=== PATIENT | female | born 1940 | race Caucasian/White ===

== ENCOUNTER 2019-07-19 09:22 | Inpatient (IN) | payer MEDICARE ==
[2019-07-18 13:15] LABS: BASOPHILS # (AUTO) 0.1 X10'3 (0-0.2); BASOPHILS % (AUTO) 1.3 % (0-1); EOSINOPHILS # (AUTO) 0.2 X10'3 (0-0.9); EOSINOPHILS % (AUTO) 3.1 % (0-6); HEMATOCRIT 37.7 % (35.0-45.0); HEMOGLOBIN 12.5 g/dl (12.0-16.0); LYMPHOCYTES # (AUTO) 0.9 X10'3 (1.1-4.8); LYMPHOCYTES % (AUTO) 15.9 % (21-51); MEAN CORPUSCULAR HEMOGLOBIN 29.3 PG (27.0-31.0); MEAN CORPUSCULAR HGB CONC 33.3 g/dL (33.0-36.5); MEAN PLATELET VOLUME 9.1 FL (7.4-10.4); MONOCYTES # (AUTO) 0.4 X10'3 (0-0.9); MONOCYTES % (AUTO) 7.5 % (2-12); NEUTROPHILS # (AUTO) 4.1 X10'3 (1.8-7.7); NEUTROPHILS % (AUTO) 72.2 % (42-75); PLATELET COUNT 229 X10'3 (140-440); RED BLOOD COUNT 4.28 X10'6 (4.20-5.60); RED CELL DISTRIBUTION WIDTH 14.7 % (11.5-14.5); WHITE BLOOD COUNT 5.7 X10'3 (4.5-11.0)
[2019-07-18 13:27] LABS: ALBUMIN 3.5 G/DL (3.4-5.0); ANION GAP 11 (8-16); BLOOD UREA NITROGEN 18 MG/DL (7-18); BUN/CREATININE RATIO 15.5 (6.6-38.0); CALCIUM 9.5 MG/DL (8.5-10.1); CHLORIDE 108 MMOL/L (99-107); CREATININE 1.16 MG/DL (0.40-0.90); GLUCOSE 188 MG/DL (70-104); POTASSIUM 4.1 MMOL/L (3.5-5.1); SODIUM 141 MMOL/L (135-145); TOTAL CARBON DIOXIDE 21.8 MMOL/L (24-32); eGFR 45 ML/MIN
[2019-07-18 13:34] LABS: PARTIAL THROMBOPLASTIN TIME 22 SECONDS (22-32)
[~2019-07-19] VITALS: Ht 170.2 cm; Wt 107.2 kg
[2019-07-19] VITALS (13 sets, daily range): BP systolic 106–146; BP diastolic 55–64
[~2019-07-19 09:22] MED LIST: AMLO10TA13 PO; AMOX-580 PO; ASPI81TA30 PO; CLOP75TA35 PO; KRIL500C PO; LISI40TA4 PO; METO-395 PO; MULT-1085 PO; NITR0.4T51 SL; OCUVITE PO; PRAV20TA4 PO; SERT100T10 PO; UBID200C32
[2019-07-19] MEDS ORDERED: LORazepam 0.5 MG tablet PO PRN (10:20)
[2019-07-19] MEDS ORDERED: diphenhydrAMINE 25mg capsule PO PRN (10:20)
[2019-07-19] MEDS ORDERED: CALC-159 PO (11:15)
[2019-07-19] MEDS ORDERED: UBID100C16 PO (11:15)
[2019-07-19] MEDS ORDERED: ATEN50TA PO (11:15)
[2019-07-19] MEDS ORDERED: NITR0.4T51 SL (11:15)
[2019-07-19] MEDS ORDERED: CLOP75TA35 PO (11:15)
[2019-07-19] MEDS ORDERED: AMLO10TA PO (11:15)
[2019-07-19] MEDS ORDERED: LISI-645 PO (11:15)
[2019-07-19] MEDS ORDERED: HYDR-4069 PO (11:15)
[2019-07-19] MEDS ORDERED: FLU VACC QS2019-20 36MOS UP/PF 60 MCG/0.5 ML SYRINGE IMVAC ONE (11:40)
[2019-07-19] MEDS: normal saline 1,000 ML IV SCH ×2 (11:46→22:07)
[2019-07-19] MEDS ORDERED: LIDOcaine 1% 30ml preserv. free vial ONE (15:31)
[2019-07-19] MEDS ORDERED: heparin 1,000unit/ml 10ml vial 10 ML ONE (15:31)
[2019-07-19] MEDS ORDERED: iohexol 350 MG/ML 50ML vial IV ONE (15:31)
[2019-07-19] MEDS ORDERED: iohexol 350MG/ML 100ml bottle IV ONE ×2 (15:31→16:07)
[2019-07-19] MEDS ORDERED: midazolam 2 mg/2 ml injection ONE ×2 (15:31→16:41)
[2019-07-19] MEDS ORDERED: fentaNYL/PF 50MCG/1 ML 2ML syringe ONE (15:31)
[2019-07-19] MEDS ORDERED: nitroGLYCERIN-Tridil 50MG/D5W 250 ML IV ONE (15:36)
[2019-07-19] MEDS ORDERED: heparin 25,000 UNIT/250ml bag 250 ML IV ONE (16:24)
[2019-07-19] MEDS ORDERED: heparin 1,000 UNITS/NS 500ml 500 ML ONE (16:24)
[2019-07-19] MEDS ORDERED: clopidogrel 300mg tablet ONE (16:49)
[2019-07-19 17:16] LABS: ISTAT Hct MIX 37 %PCV (35-48); ISTAT O2 SATURATION MIX VENOUS 68 % (60-80); ISTAT SOURCE MIX
[2019-07-19 17:16] LABS: ISTAT HGB ART 12.2 g/dl (12.0-16.0); ISTAT Hct ART 36 %PCV (35-48); ISTAT O2 SATURATION ARTERIAL 98 % (95-98); ISTAT SOURCE ART
[2019-07-19] MEDS ORDERED: sodium bicarbonate (8.4%) inj. 100 ML in dextrose 5%-water 1,000 ML IV ONE (17:30)
[2019-07-19] MEDS ORDERED: nitroGLYCERIN 0.4mg SUBLingual tab SL PRN (18:00)
[2019-07-19] MEDS ORDERED: heparin 25,000 UNIT/250ml bag 250 ML IV SCH (18:03)
--- NOTE | 2019-07-19 19:50 | NUR ---
received report from wayne sparrow no questions or concerns after assuming care
[2019-07-19] MEDS: ACETYLCYSTEINE 200 MG/1 ML 4 ML ORAL SOLUTION PO SCH (20:00)
[2019-07-19] MEDS: aspirin 81mg tablet.DR PO SCH (20:00)
--- NOTE | 2019-07-19 20:51 | NUR ---
patients act 153 at 2030 hrs, patient requested bed goodman prior to pulling cath sheath, distal pulses intact rr even unlabored no observable s/s of acute stress at this time
--- NOTE | 2019-07-19 21:23 | NUR ---
dc'd sheaths holding brooke pressure
--- NOTE | 2019-07-19 21:45 | NUR ---
femstop applied no s/s of bleeding will continue to observe
--- NOTE | 2019-07-19 22:15 | NUR ---
patient in bed eyes closed rr even unlabored no s/s of acute stress or bleeding at this time
--- NOTE | 2019-07-19 23:08 | NUR ---
put a call in to dr[employer] [employer] requesting order for sleep aid, patient states taking "ambien." at night for insomnia, patient in bed rr even un labored no s/s of acute stress at this time
[2019-07-19] MEDS ORDERED: HYDROcodone/acetaminophen 5mg/325mg tablet PO PRN (23:15)
[2019-07-19] MEDS ORDERED: zolpidem 5mg tablet PO PRN (23:15)
[2019-07-19] MEDS ORDERED: HYDROcodone/acetaminophen 10/325mg tab PO PRN (23:15)
[2019-07-20] VITALS (9 sets, daily range): BP systolic 117–141; BP diastolic 53–114
--- NOTE | 2019-07-20 01:52 | NUR ---
PATIENT IN BED COVERS ON EYES CLOSED RR EVEN UN LABORED NO OBSERVABLE S/S OF ACUTE STRESS AT THIS TIME
--- NOTE | 2019-07-20 04:38 | NUR ---
PATIENT IN BED EYES CLOSED FINISHED USING BED LEYVA RR EVEN UN LABORED NO OBSERVABLE S/S OF ACUTE STRESS AT THIS TIME
[2019-07-20 04:56] LABS: BASOPHILS # (AUTO) 0.1 X10'3 (0-0.2); EOSINOPHILS # (AUTO) 0.2 X10'3 (0-0.9); EOSINOPHILS % (AUTO) 2.4 % (0-6); HEMATOCRIT 36.3 % (35.0-45.0); HEMOGLOBIN 12.2 g/dl (12.0-16.0); LYMPHOCYTES # (AUTO) 1.2 X10'3 (1.1-4.8); LYMPHOCYTES % (AUTO) 18.6 % (21-51); MEAN CORPUSCULAR HEMOGLOBIN 29.1 PG (27.0-31.0); MEAN CORPUSCULAR HGB CONC 33.6 g/dL (33.0-36.5); MEAN CORPUSCULAR VOLUME 86.6 FL (78-98); MEAN PLATELET VOLUME 8.8 FL (7.4-10.4); MONOCYTES # (AUTO) 0.7 X10'3 (0-0.9); MONOCYTES % (AUTO) 10.2 % (2-12); NEUTROPHILS # (AUTO) 4.5 X10'3 (1.8-7.7); NEUTROPHILS % (AUTO) 67.8 % (42-75); PLATELET COUNT 220 X10'3 (140-440); RED BLOOD COUNT 4.19 X10'6 (4.20-5.60); RED CELL DISTRIBUTION WIDTH 14.6 % (11.5-14.5); WHITE BLOOD COUNT 6.6 X10'3 (4.5-11.0)
[2019-07-20 05:09] LABS: ALBUMIN 3.4 G/DL (3.4-5.0); ANION GAP 10 (8-16); BLOOD UREA NITROGEN 17 MG/DL (7-18); BUN/CREATININE RATIO 16.2 (6.6-38.0); CALCIUM 9.4 MG/DL (8.5-10.1); CHLORIDE 109 MMOL/L (99-107); CHOL/HDL RATIO 2.7 (0.00-4.99); CHOLESTEROL 168 MG/DL (0-200); CREATININE 1.05 MG/DL (0.40-0.90); GLUCOSE 100 MG/DL (70-104); HDL CHOLESTEROL 62 MG/DL (35-60); LDL CHOLESTEROL 82 MG/DL (50-100); POTASSIUM 3.8 MMOL/L (3.5-5.1); SODIUM 143 MMOL/L (135-145); TOTAL CARBON DIOXIDE 23.7 MMOL/L (24-32); TRIGLYCERIDES 168 MG/DL (20-135); eGFR 50 ML/MIN
--- NOTE | 2019-07-20 06:18 | NUR ---
SBAR TO DAY SHIFT RN NO QUESTIONS OR CONCERNS AFTER ASSUMING CARE
[2019-07-20] MEDS: normal saline 1,000 ML IV SCH (07:21)
--- NOTE | 2019-07-20 07:23 | NUR ---
Report given to Francoise Hanson RN.
[2019-07-20] MEDS ORDERED: atorvastatin 10mg tablet PO SCH (08:00)
[2019-07-20] MEDS ORDERED: lisinopril 20mg tablet PO SCH (08:00)
[2019-07-20] MEDS ORDERED: hydrALAZINE 25 MG tablet PO SCH (08:00)
[2019-07-20] MEDS ORDERED: non-formulary drug (Ubidecarenone (Coq-10) 100 MG) PO SCH (08:00)
[2019-07-20] MEDS ORDERED: multivitamins, therapeutics tablet PO SCH (08:00)
[2019-07-20] MEDS ORDERED: clopidogrel 75mg tablet PO SCH ×2 (08:00)
[2019-07-20] MEDS ORDERED: calcium carbonate/vitamin D3 tablet PO SCH (08:00)
[2019-07-20] MEDS ORDERED: sertraline 50mg tablet PO SCH (08:00)
[2019-07-20] MEDS ORDERED: atenolol 50mg tablet PO SCH (08:00)
[2019-07-20] MEDS: ACETYLCYSTEINE 200 MG/1 ML 4 ML ORAL SOLUTION PO SCH (08:00)
[2019-07-20] MEDS ORDERED: amLODIPine 5mg tablet PO SCH (08:00)
[2019-07-20] MEDS: aspirin 81mg tablet.DR PO SCH (08:55)
--- NOTE | 2019-07-20 09:45 | NUR ---
patient discharged and discharge packet provided, patient is sitting up on side of bed waiting for family member to come pick her up.
--- NOTE | 2019-07-20 10:00 | NUR ---
patient taken down to the car via wheelchair and family member is driving her home
== END 2019-07-20 09:30 | disposition home or self-care (01) | DRG 247 ==
LOC: SSTAY O 09:22 → CICU 2S 19:45
PROVIDERS: ADMIT Internal Medicine Cardiovascular Disease; ATTEND Internal Medicine Cardiovascular Disease
PROC: 4A023N8 Measurement of Cardiac Sampling and Pressure, Bilateral, Percutaneous Approach (ICD-10-PCS; principal; 2019-07-19)
PROC: 027034Z Dilation of Coronary Artery, One Artery with Drug-eluting Intraluminal Device, Percutaneous Approach (ICD-10-PCS; 2019-07-19)
PROC: B2111ZZ Fluoroscopy of Multiple Coronary Arteries using Low Osmolar Contrast (ICD-10-PCS; 2019-07-19)
PROC: B2151ZZ Fluoroscopy of Left Heart using Low Osmolar Contrast (ICD-10-PCS; 2019-07-19)
PROC: B2131ZZ Fluoroscopy of Multiple Coronary Artery Bypass Grafts using Low Osmolar Contrast (ICD-10-PCS; 2019-07-19)
DX: I25.10 Atherosclerotic heart disease of native coronary artery without angina pectoris (principal); I50.32 Chronic diastolic (congestive) heart failure; E78.5 Hyperlipidemia, unspecified; I49.5 Sick sinus syndrome; G47.00 Insomnia, unspecified; F32.9 Major depressive disorder, single episode, unspecified; E03.9 Hypothyroidism, unspecified; M19.90 Unspecified osteoarthritis, unspecified site; E66.9 Obesity, unspecified; I11.0 Hypertensive heart disease with heart failure; Z79.02 Long term (current) use of antithrombotics/antiplatelets; Z79.899 Other long term (current) drug therapy; Z95.1 Presence of aortocoronary bypass graft; Z28.21 Immunization not carried out because of patient refusal; Z86.718 Personal history of other venous thrombosis and embolism; Z85.3 Personal history of malignant neoplasm of breast; Z68.37 Body mass index [BMI] 37.0-37.9, adult
CPT/HCPCS: 93461; C9600; 36415; 80048; 80061; 82803; 85014; 85025; 85347; 85610; 85730; 93005; 99152; 99153; A4620; A6258; C1725; C1769; C1874; G0378; J1644; J2001; J2250; J3010; J3490; J7030; J7040; Q0163; Q2037; Q9967

== ENCOUNTER 2019-11-22 10:29 | Day surgery (SDC) | payer MEDICARE ==
[2019-11-21 11:49] LABS: BASOPHILS # (AUTO) 0.1 X10'3 (0-0.2); BASOPHILS % (AUTO) 1.2 % (0-1); EOSINOPHILS # (AUTO) 0.2 X10'3 (0-0.9); EOSINOPHILS % (AUTO) 2.9 % (0-6); HEMATOCRIT 33.5 % (35.0-45.0); HEMOGLOBIN 10.9 g/dl (12.0-16.0); LYMPHOCYTES # (AUTO) 1.1 X10'3 (1.1-4.8); LYMPHOCYTES % (AUTO) 18.7 % (21-51); MEAN CORPUSCULAR HEMOGLOBIN 25.9 PG (27.0-31.0); MEAN CORPUSCULAR HGB CONC 32.6 g/dL (33.0-36.5); MEAN CORPUSCULAR VOLUME 79.7 FL (78-98); MEAN PLATELET VOLUME 8.5 FL (7.4-10.4); MONOCYTES # (AUTO) 0.5 X10'3 (0-0.9); MONOCYTES % (AUTO) 8.9 % (2-12); NEUTROPHILS % (AUTO) 68.3 % (42-75); PLATELET COUNT 235 X10'3 (140-440); RED BLOOD COUNT 4.21 X10'6 (4.20-5.60); RED CELL DISTRIBUTION WIDTH 15.2 % (11.5-14.5); WHITE BLOOD COUNT 5.8 X10'3 (4.5-11.0)
[2019-11-21 11:59] LABS: PARTIAL THROMBOPLASTIN TIME 22 SECONDS (22-32)
[2019-11-21 12:12] LABS: ALBUMIN 3.4 G/DL (3.4-5.0); ANION GAP 9 (8-16); BLOOD UREA NITROGEN 22 MG/DL (7-18); CALCIUM 9.7 MG/DL (8.5-10.1); CHLORIDE 108 MMOL/L (99-107); CREATININE 1.16 MG/DL (0.40-0.90); GLUCOSE 145 MG/DL (70-104); POTASSIUM 4.3 MMOL/L (3.5-5.1); SODIUM 142 MMOL/L (135-145); TOTAL CARBON DIOXIDE 24.9 MMOL/L (24-32); eGFR 45 ML/MIN
[~2019-11-22] VITALS: Ht 170.2 cm; Wt 106.2 kg
[2019-11-22] VITALS (8 sets, daily range): BP systolic 140–182; BP diastolic 55–68
[~2019-11-22 10:29] MED LIST changes: +AMLO10TA PO; -AMLO10TA13 PO; -AMOX-580 PO; +ATEN50TA PO; +CALC-159 PO; +HYDR-4069 PO; +LISI-645 PO; -LISI40TA4 PO; -METO-395 PO; +UBID100C16 PO; -UBID200C32
[2019-11-22] MEDS ORDERED: normal saline 1000ml 1,000 ML IV SCH (10:50)
[2019-11-22] MEDS ORDERED: ceFAZolin inj. 2,000 MG in dextrose 5%-water 100 ML IV ONE (10:55)
[2019-11-22] MEDS ORDERED: ZOLP10TA5 PO (12:08)
[2019-11-22] MEDS ORDERED: midazolam 2 mg/2 ml injection ONE ×2 (15:10→15:55)
[2019-11-22] MEDS ORDERED: LIDOcaine 1% W/epiNEPHrine 1:100,000 20ml vial ONE ×2 (15:10→15:54)
[2019-11-22] MEDS ORDERED: ceFAZolin 1000mg inj ONE (15:10)
[2019-11-22] MEDS ORDERED: fentaNYL/PF 50MCG/1 ML 2ML syringe ONE ×2 (15:10→16:28)
[2019-11-22] MEDS ORDERED: proCHLORperazine 10 MG/2 ml inj ONE (16:04)
[2019-11-22] MEDS ORDERED: vancomycin/NS 1 GM ADD-VANTAGE 250 ML X 1 DOSE IV ONE (18:00)
== END 2019-11-22 20:30 | disposition home or self-care (01) ==
LOC: SSTAY O 10:29
PROVIDERS: ATTEND Internal Medicine Cardiovascular Disease
DX: I49.5 Sick sinus syndrome (principal); I11.0 Hypertensive heart disease with heart failure; I50.9 Heart failure, unspecified; E78.5 Hyperlipidemia, unspecified; I25.10 Atherosclerotic heart disease of native coronary artery without angina pectoris; M19.90 Unspecified osteoarthritis, unspecified site; Z79.01 Long term (current) use of anticoagulants; Z95.5 Presence of coronary angioplasty implant and graft; Z79.899 Other long term (current) drug therapy; Z79.82 Long term (current) use of aspirin; Z90.710 Acquired absence of both cervix and uterus; Z85.3 Personal history of malignant neoplasm of breast; Z98.84 Bariatric surgery status; Z87.891 Personal history of nicotine dependence; Z86.718 Personal history of other venous thrombosis and embolism
CPT/HCPCS: 33208; 36415; 71046; 80048; 85025; 85610; 85730; 93005; 99152; 99153; C1785; C1894; C1898; J0690; J0780; J2250; J3010; J3370; A4565; A4620; A6449

== ENCOUNTER 2022-03-24 08:40 | Inpatient (IN) | payer MEDICARE ==
[2022-03-17 15:21] LABS: BASOPHILS # (AUTO) 0.1 X10'3 (0-0.2); BASOPHILS % (AUTO) 1.2 % (0-1); EOSINOPHILS # (AUTO) 0.1 X10'3 (0-0.9); EOSINOPHILS % (AUTO) 1.8 % (0-6); LYMPHOCYTES # (AUTO) 1.3 X10'3 (1.1-4.8); MEAN CORPUSCULAR HEMOGLOBIN 24.5 PG (27.0-31.0); MEAN CORPUSCULAR VOLUME 76.4 FL (78-98); MEAN PLATELET VOLUME 8.1 FL (7.4-10.4); MONOCYTES # (AUTO) 0.6 X10'3 (0-0.9); PRE OP HEMATOCRIT 32.7 % (35.0-45.0); PRE OP PLATELET COUNT 254 X10'3 (140-440); RED BLOOD COUNT 4.28 X10'6 (4.20-5.60); RED CELL DISTRIBUTION WIDTH 17.5 % (11.5-14.5)
[2022-03-17 15:26] LABS: PRE OP HEMOGLOBIN 10.5 g/dL (12.0-16.0)
[2022-03-17 15:36] LABS: PRE OP PROTIME 10.5 SECONDS (9.0-12.0)
[2022-03-17 15:39] LABS: ALBUMIN 3.7 G/DL (3.4-5.0); ALBUMIN/GLOBULIN RATIO 1.1 (1.1-1.5); ALKALINE PHOSPHATASE 74 IU/L (46-116); BLOOD UREA NITROGEN 24 MG/DL (7-18); BUN/CREATININE RATIO 16.3 (6.6-38.0); CALCIUM 9.8 MG/DL (8.5-10.1); CHLORIDE 109 MMOL/L (99-107); CREATININE 1.47 MG/DL (0.40-0.90); PRE OP ALT 17 U/L (30-65); PRE OP ANION GAP 9 (8-16); PRE OP AST 16 U/L (10-37); PRE OP BILIRUB, TOTAL 0.3 MG/DL (0.0-1.0); PRE OP GLUCOSE 106 MG/DL (70-104); PRE OP POTASSIUM 4.3 MMOL/L (3.4-5.1); PRE OP SODIUM 143 MMOL/L (135-145); TOTAL CARBON DIOXIDE 25.3 MMOL/L (24-32); TOTAL PROTEIN 7.1 G/DL (6.4-8.2); eGFR 34 ML/MIN
[2022-03-24] VITALS (21 sets, daily range): BP systolic 98–159; BP diastolic 44–83
[~2022-03-24] VITALS: Ht 170.2 cm; Wt 97.7 kg
[~2022-03-24 08:40] MED LIST changes: -AMLO10TA PO; +AMLO5TAB16 PO; -ATEN50TA PO; +CLOP75TA34 PO; -CLOP75TA35 PO; +HYDROcodone/acetaminophen 10/325mg tab PO PRN; +HYDROmorphone 1 mg/ml syringe IV PRN; +HYDROmorphone inj. 0.5 MG/0.5 ML DISP.SYRIN IV PRN; -KRIL500C PO; -OCUVITE PO; +OMEP40CA21 PO; +SERT-434 PO; -SERT100T10 PO; -UBID100C16 PO; +ZOLP10TA5 PO; +acetaminophen 325mg tablet PO ONE; +acetaminophen 325mg tablet PO PRN; +amLODIPine 5mg tablet PO SCH; +ascorbic acid 500mg tablet PO SCH; +bisacodyl 10mg suppository rectal RC PRN; +ceFAZolin inj. 2,000 MG in dextrose 5%-water 100 ML IV ONE; +celeCOXIB 100mg capsule PO ONE; +clopidogrel 75mg tablet PO SCH; +diphenhydrAMINE 25mg capsule PO PRN; +famotidine 20mg tablet PO ONE; +gabapentin 300mg capsule PO ONE; +gabapentin 300mg capsule PO SCH; +magnesium hydroxide 30ml (MOM) UD suspension PO PRN; +metoclopramide 5 mg/ml inj IV ONE; +multivitamins, therapeutics tablet PO SCH; +naloxone 0.4 mg/ml inj IV PRN; +nitroGLYCERIN 0.4mg SUBLingual tab SL PRN; +ondansetron/PF 4mg/2ml inj IV PRN; +oxyCODONE SR 10mg (sust. release) tab -2 tabs (20mg) PO ONE; +tranexamic acid inj. 1,000 MG in 0.7% saline 100 ML PMX IV ONE; +vancomycin 1,500 MG in NS 300ml IV soln IV ONE; +vancomycin/NS 1 GM in NS 250 ML IV ONE
--- NOTE | 2022-03-24 08:55 | NUR ---
CSM: PATIENT STATES SHE DID NOT RECEIVE MUPIROCIN CREAM FROM THE DE. SHE DID NOT WATCH THE VIDEO BUT SHE READ ALL THE MATERIAL IN THE BOOKLET. PULSES PRESENT. SKIN WARM DRY AND INTACT. PULSES MARKED
[2022-03-24] MEDS: ringers solution, lacted 1,000 ML IV SCH ×3 (09:34→16:23)
--- NOTE | 2022-03-24 09:40 | NUR ---
PATIENT HAS AN 18 IN THE RIGHT HAND. SLUSHING WELL. ANOTHER RN CHECKED FLOW AND PATENCY. KRYS VARMA AND HAD ANOTHER RN CHECK TO SEE IT IS RUNNING.
--- NOTE | 2022-03-24 10:30 | NUR ---
CHECKED ON PATIENT AND CHECKED HER VANCO. PATIENT IN NOT SENSITIVE TO VANCO AND IT IS STILL INFUSING. ROSE DERAS CHECKED TO SEE IT IS INFUSING.
[2022-03-24] MEDS ORDERED: vancomycin 1,000mg inj ONE (11:09)
[2022-03-24] MEDS ORDERED: cloNIDine hcl/PF 100mcg/ml inj ONE (11:09)
[2022-03-24] MEDS ORDERED: ketorolac trometh. 30mg/ml inj. ONE (11:09)
[2022-03-24] MEDS ORDERED: epiNEPHrine 1 mg/ml inj ONE (11:12)
[2022-03-24] MEDS ORDERED: fentaNYL/PF 50MCG/1 ML 2ML syringe ONE (12:03)
[2022-03-24] MEDS ORDERED: ROPIVAcaine 0.5% (5mg/ml) 30ml vial ONE (12:11)
[2022-03-24] MEDS ORDERED: labetalol 20mg/4ml (5mg/ml) syringe IV PRN (12:40)
[2022-03-24] MEDS ORDERED: fentaNYL/PF 50MCG/1 ML 2ML syringe IV PRN ×2 (12:40)
[2022-03-24] MEDS ORDERED: ondansetron/PF 4mg/2ml inj IV PRN (12:40)
[2022-03-24] MEDS ORDERED: morphine 4 MG/ML inj SYRINge IV PRN (12:40)
[2022-03-24] MEDS ORDERED: ringers solution, lacted 1,000 ML IV SCH (12:40)
[2022-03-24] MEDS ORDERED: morphine 2 MG/ML inj. syringe IV PRN (12:40)
[2022-03-24] MEDS ORDERED: hydrALAZINE 20mg/ml inj. IV PRN (12:40)
[2022-03-24] MEDS ORDERED: epiNEPHrine 1 mg/ml inj IM ONE (12:43)
[2022-03-24] MEDS ORDERED: MIDAZolam 1 MG/ML 5ML VIAL ONE (13:18)
--- NOTE | 2022-03-24 13:28 | NUR ---
FROM OR ON BED WITH DR SALDAÑA AT SIDE. VSS, PACED RHYTHM, LEFT HIP DSG WITH MILAN DRESSING, AND IS FUNCTIONING. PULSE TO LEFT FOOT DOPPLER. TOES WARM, CAP REFILL BRISK. NO CO PAIN. SKIN WARM AND DRY.
--- NOTE | 2022-03-24 14:57 | NUR ---
REPORT PHONED TO FLOOR. SPOKE WITH PEYTON. ALL ISSUES ADDRESSED.
--- NOTE | 2022-03-24 15:08 | NUR ---
TO ORTHO ON BED. AWAKE, DSG REMAINS CDI. IV PATENT. NO RESP DISTRESS. PULSE DOPPLER TO LEFT FOOT. BRISK CAP REFILLS. SCDS CONTINUE, ICE CONTINUES. TRANSPORTED WITHOUT INCIDENT TO ROOM 4014B.
[2022-03-24] MEDS ORDERED: tranexamic acid inj. 1,000 MG in normal saline 100ml IV soln 90 ML IV ONE (15:30)
--- NOTE | 2022-03-24 15:30 | NUR ---
Received patient to room 4014B in bed accompanied byx 2 staff. Patient drowsy but easily awakens to voice and orientedx4. Left knee brace on, left hip MILAN dressing CDI and with powder pack. Post vitals initiated. Call light within reach.
--- NOTE | 2022-03-24 17:19 | NUR ---
Pharmacy called to send cefazolin and tranexamic. Spoke to PharmacistBlanca. Will administer when received.
[2022-03-24] MEDS: cefazolin/dext.iso 2gm/100ml 100 ML IV SCH ×2 (18:03→23:53)
--- NOTE | 2022-03-24 18:24 | NUR ---
Problems reprioritized. Patient report given, questions answered & plan of care reviewed with AUGUSTA Guzmán.
[2022-03-24] MEDS ORDERED: NORMAL SALINE IV SCH (20:00)
[2022-03-24] MEDS ORDERED: VANCOMYCIN IV SCH (20:00)
[2022-03-24] MEDS: amLODIPine 5mg tablet PO SCH (20:08)
[2022-03-24] MEDS: gabapentin 300mg capsule PO SCH (20:08)
[2022-03-24] MEDS: ascorbic acid 500mg tablet PO SCH (20:08)
[2022-03-24] MEDS: aspirin 81mg tab.chew PO SCH (20:08)
[2022-03-24] MEDS ORDERED: lisinopril 20mg tablet PO SCH (21:00)
[2022-03-24] MEDS ORDERED: sertraline 50mg tablet PO SCH (21:00)
[2022-03-24] MEDS ORDERED: sennosides 8.6mg tablet PO SCH (21:00)
[2022-03-24] MEDS ORDERED: zolpidem 5mg tablet PO SCH (21:00)
[2022-03-24] MEDS ORDERED: hydrALAZINE 25 MG tablet PO SCH (21:00)
[2022-03-24] MEDS: potassium cl 20mEq in 1/2 NS 1,000 ML IV SCH (23:53)
[2022-03-25 02:00] VITALS: BP 130/55
[2022-03-25] MEDS: HYDROcodone/acetaminophen 10/325mg tab PO PRN ×2 (05:33→11:48)
--- NOTE | 2022-03-25 06:31 | NUR ---
Patient in room ORTHO 4014. I have received report from AUGUSTA Guzmán and had the opportunity to ask questions and assume patient care.
[2022-03-25 06:34] VITALS: BP 128/48
[2022-03-25] MEDS: potassium cl 20mEq in 1/2 NS 1,000 ML IV SCH (06:45)
[2022-03-25 07:11] LABS: BASOPHILS # (AUTO) 0.1 X10'3 (0-0.2); BASOPHILS % (AUTO) 0.7 % (0-1); EOSINOPHILS # (AUTO) 0.2 X10'3 (0-0.9); HEMATOCRIT 29.7 % (35.0-45.0); HEMOGLOBIN 9.6 g/dl (12.0-16.0); LYMPHOCYTES # (AUTO) 0.5 X10'3 (1.1-4.8); LYMPHOCYTES % (AUTO) 6.4 % (21-51); MEAN CORPUSCULAR HEMOGLOBIN 24.4 PG (27.0-31.0); MEAN CORPUSCULAR HGB CONC 32.2 g/dL (33.0-36.5); MEAN CORPUSCULAR VOLUME 75.8 FL (78-98); MEAN PLATELET VOLUME 8.4 FL (7.4-10.4); MONOCYTES # (AUTO) 0.7 X10'3 (0-0.9); NEUTROPHILS # (AUTO) 6.9 X10'3 (1.8-7.7); NEUTROPHILS % (AUTO) 82.9 % (42-75); PLATELET COUNT 221 X10'3 (140-440); RED BLOOD COUNT 3.93 X10'6 (4.20-5.60); RED CELL DISTRIBUTION WIDTH 17.8 % (11.5-14.5); WHITE BLOOD COUNT 8.4 X10'3 (4.5-11.0)
[2022-03-25] MEDS ORDERED: pantoprazole 40mg Tablet.DR PO SCH (07:30)
[2022-03-25 07:31] LABS: ANION GAP 0 (8-16); CHLORIDE 106 MMOL/L (99-107); POTASSIUM 4.6 MMOL/L (3.5-5.1); SODIUM 130 MMOL/L (135-145); TOTAL CARBON DIOXIDE 23.7 MMOL/L (24-32)
[2022-03-25] MEDS ORDERED: multivitamins, therapeutics tablet PO SCH (08:00)
[2022-03-25] MEDS ORDERED: clopidogrel 75mg tablet PO SCH (08:00)
[2022-03-25] MEDS ORDERED: atorvastatin 10mg tablet PO SCH (08:00)
[2022-03-25] MEDS: amLODIPine 5mg tablet PO SCH (08:08)
[2022-03-25] MEDS: gabapentin 300mg capsule PO SCH ×2 (08:08→14:01)
[2022-03-25] MEDS: aspirin 81mg tab.chew PO SCH (08:08)
[2022-03-25] MEDS: ascorbic acid 500mg tablet PO SCH (08:08)
--- NOTE | 2022-03-25 09:55 | NUR ---
Joint consult: Pt s/p L hip surgery this admit per EMR. Pt seen by MADI for written/verbal high protein ed w/ RD contact information provided. MADI encouraged pt to contact dietitian's office if further questions/concerns. Addendum: 03/25/22 at [address] Amended: Links added.
[2022-03-25 10:00] VITALS: BP 143/54
--- NOTE | 2022-03-25 14:36 | NUR ---
Patient alert and oriented in no apparent acute distress. Discussed with patient discharge instructions. Patient verbalizes understanding of reaching. Patient given extra MILAN dressing and x2 powder pack. Patient ready for DC and waiting for ride.
[2022-03-25 14:44] VITALS: BP 108/31
--- NOTE | 2022-03-25 14:45 | NUR ---
Patient dc'd with all personal belongings via wheelchair accompanied by x1 auxillary staff. Patient was alert and oriented with no s/s of apparent acute distress.
[2022-03-25] MEDS ORDERED: celeCOXIB 100mg capsule PO SCH (20:00)
== END 2022-03-25 14:45 | disposition home or self-care (01) | DRG 470 ==
LOC: PAS 08:40 → PAS IN 15:10 → ORTHO 4S 15:15
PROVIDERS: ADMIT Orthopaedic Surgery; ATTEND Orthopaedic Surgery
PROC: 0SRB06Z Replacement of Left Hip Joint with Oxidized Zirconium on Polyethylene Synthetic Substitute, Open Approach (ICD-10-PCS; principal; 2022-03-24 11:55)
DX: M16.12 Unilateral primary osteoarthritis, left hip (principal); I13.0 Hypertensive heart and chronic kidney disease with heart failure and stage 1 through stage 4 chronic kidney disease, or unspecified chronic kidney disease; I50.9 Heart failure, unspecified; K21.9 Gastro-esophageal reflux disease without esophagitis; N18.9 Chronic kidney disease, unspecified; Z79.02 Long term (current) use of antithrombotics/antiplatelets; Z79.82 Long term (current) use of aspirin; Z79.899 Other long term (current) drug therapy
CPT/HCPCS: 36415; 71045; 72170; 80051; 80053; 82948; 85025; 85610; 85730; 87081; 97116; 97161; 97530; A7000; C1776; G0378; J0171; J0690; J0735; J1885; J2250; J2765; J2795; J3010; J3370; J3480; J3490; J7040; J7060; J7120

== ENCOUNTER 2023-12-12 05:04 | Inpatient (IN) | payer MEDICARE ==
[~2023-12-12] VITALS: Ht 170.2 cm; Wt 104.5 kg
[~2023-12-12 05:04] MED LIST changes: -HYDR-4069 PO; +HYDR25TA90 PO; -HYDROcodone/acetaminophen 10/325mg tab PO PRN; -HYDROmorphone 1 mg/ml syringe IV PRN; -HYDROmorphone inj. 0.5 MG/0.5 ML DISP.SYRIN IV PRN; -acetaminophen 325mg tablet PO ONE; -acetaminophen 325mg tablet PO PRN; -amLODIPine 5mg tablet PO SCH; -ascorbic acid 500mg tablet PO SCH; -bisacodyl 10mg suppository rectal RC PRN; -ceFAZolin inj. 2,000 MG in dextrose 5%-water 100 ML IV ONE; -celeCOXIB 100mg capsule PO ONE; -clopidogrel 75mg tablet PO SCH; -diphenhydrAMINE 25mg capsule PO PRN; -famotidine 20mg tablet PO ONE; -gabapentin 300mg capsule PO ONE; -gabapentin 300mg capsule PO SCH; -magnesium hydroxide 30ml (MOM) UD suspension PO PRN; -metoclopramide 5 mg/ml inj IV ONE; -multivitamins, therapeutics tablet PO SCH; -naloxone 0.4 mg/ml inj IV PRN; -nitroGLYCERIN 0.4mg SUBLingual tab SL PRN; -ondansetron/PF 4mg/2ml inj IV PRN; -oxyCODONE SR 10mg (sust. release) tab -2 tabs (20mg) PO ONE; -tranexamic acid inj. 1,000 MG in 0.7% saline 100 ML PMX IV ONE; -vancomycin 1,500 MG in NS 300ml IV soln IV ONE; -vancomycin/NS 1 GM in NS 250 ML IV ONE
[2023-12-12 07:51] LABS: BASOPHILS % (AUTO) 0.4 % (0-1); EOSINOPHILS % (AUTO) 0.1 % (0-6); HEMATOCRIT 32.1 % (35.0-45.0); HEMOGLOBIN 10.4 g/dl (12.0-16.0); LYMPHOCYTES # (AUTO) 0.2 X10'3 (1.1-4.8); LYMPHOCYTES % (AUTO) 2.7 % (21-51); MEAN CORPUSCULAR HEMOGLOBIN 25.9 PG (27.0-31.0); MEAN CORPUSCULAR HGB CONC 32.5 g/dL (33.0-36.5); MEAN CORPUSCULAR VOLUME 79.7 FL (78-98); MEAN PLATELET VOLUME 8.6 FL (7.4-10.4); MONOCYTES # (AUTO) 0.6 X10'3 (0-0.9); MONOCYTES % (AUTO) 6.7 % (2-12); NEUTROPHILS # (AUTO) 8.2 X10'3 (1.8-7.7); NEUTROPHILS % (AUTO) 90.1 % (42-75); PLATELET COUNT 183 X10'3 (140-440); RED BLOOD COUNT 4.02 X10'6 (4.20-5.60); RED CELL DISTRIBUTION WIDTH 20.6 % (11.5-14.5); WHITE BLOOD COUNT 9.2 X10'3 (4.5-11.0)
[2023-12-12 08:05] LABS: ALANINE AMINOTRANSFERASE 16 U/L (12-78); ALBUMIN 2.8 G/DL (3.4-5.0); ALBUMIN/GLOBULIN RATIO 0.9 (1.1-1.5); ALKALINE PHOSPHATASE 51 IU/L (46-116); ANION GAP 10 (8-16); ASPARTATE AMINO TRANSFERASE 16 U/L (10-37); BILIRUBIN,TOTAL 0.6 MG/DL (0.1-1.0); BLOOD UREA NITROGEN 16 MG/DL (7-18); BUN/CREATININE RATIO 11.3 (10.0-20.0); CALCIUM 8.8 MG/DL (8.5-10.1); CHLORIDE 109 MMOL/L (99-107); CREATININE 1.41 MG/DL (0.40-0.90); GLUCOSE 119 MG/DL (70-104); POTASSIUM 3.5 MMOL/L (3.5-5.1); SODIUM 144 MMOL/L (135-145); TOTAL PROTEIN 5.9 G/DL (6.4-8.2); eCRCL 42 ML/MIN; eGFR 36 ML/MIN
[2023-12-12 08:13] LABS: MAGNESIUM 1.6 MG/DL (1.5-2.4); PRO BRAIN NATRIURETIC PEPTIDE 4240 PG/ML (0-450)
[2023-12-12] MEDS: piperacillin/tazo 4.5gm/100ml 100 ML IV ONE (08:41)
[2023-12-12] MEDS: acetaminophen 325mg tablet PO ONE (08:42)
[2023-12-12] MEDS: morphine 2 MG/ML inj. syringe IV ONE (08:42)
[2023-12-12] MEDS: normal saline 1000ml 1,000 ML IV ONE (08:42)
[2023-12-12] MEDS: ondansetron/PF 4mg/2ml inj IV ONE (08:43)
[2023-12-12] MEDS: heparin 10,000 units/1 ML INJ IV ONE ×2 (09:40→10:55)
[2023-12-12] MEDS ORDERED: acetaminophen 650mg rectal suppository RC PRN (10:05)
[2023-12-12] MEDS ORDERED: mag hydrox/Alum hydrox/simeth 30ml oral suspension PO PRN (10:05)
[2023-12-12] MEDS ORDERED: potassium Cl 20 mEq SR tablet PO PRN ×2 (10:05)
[2023-12-12] MEDS ORDERED: potassium Cl 40MEQ/1/2NS 520ml 520 ML IV PRN (10:05)
[2023-12-12] MEDS ORDERED: magnesium 4gm in 100ml NS 100 ML IV PRN (10:05)
[2023-12-12] MEDS ORDERED: morphine 2 MG/ML inj. syringe IV PRN (10:05)
[2023-12-12] MEDS ORDERED: ondansetron 4mg rapidly disintigrating tab PO PRN (10:05)
[2023-12-12] MEDS ORDERED: HYDROcodone/acetaminophen 5mg/325mg tablet PO PRN (10:05)
[2023-12-12] MEDS ORDERED: magnesium Cl slow-release 64mg tablet PO PRN (10:05)
[2023-12-12] MEDS ORDERED: magnesium 2GM in 50ml NS 50 ML IV PRN (10:05)
[2023-12-12] MEDS ORDERED: acetaminophen 325mg tablet PO PRN ×2 (10:05)
[2023-12-12] MEDS ORDERED: heparin 25,000 UNIT/250ml bag 250 ML IV PRN (10:05)
[2023-12-12] MEDS ORDERED: ondansetron/PF 4mg/2ml inj IV PRN (10:05)
[2023-12-12] MEDS ORDERED: magnesium hydroxide 30ml (MOM) UD suspension PO PRN (10:05)
[2023-12-12] MEDS: aspirin 325mg tablet, delayed-release (Ecotrin) PO ONE (10:20)
[2023-12-12] MEDS: nitroGLYCERIN 1gm ointment UD TP ONE (10:27)
[2023-12-12 10:31] LABS: APTT 26 SECONDS (22-32); PROTHROMBIN TIME 11.2 SECONDS (9.0-12.0)
[2023-12-12 10:33] LABS: CHOLESTEROL 124 MG/DL (0-200); HDL CHOLESTEROL 62 MG/DL (35-60); LDL CHOLESTEROL 38 MG/DL (50-100); TRIGLYCERIDES 106 MG/DL (20-135)
[2023-12-12] MEDS: heparin 25,000 UNIT/250ml bag 250 ML IV PRN (10:56)
[2023-12-12 11:08] LABS: BASOPHILS % (AUTO) 0.5 % (0-1); EOSINOPHILS % (AUTO) 0.1 % (0-6); HEMATOCRIT 26.8 % (35.0-45.0); HEMOGLOBIN 8.7 g/dl (12.0-16.0); LYMPHOCYTES # (AUTO) 0.5 X10'3 (1.1-4.8); LYMPHOCYTES % (AUTO) 5.2 % (21-51); MEAN CORPUSCULAR HEMOGLOBIN 26.3 PG (27.0-31.0); MEAN CORPUSCULAR HGB CONC 32.5 g/dL (33.0-36.5); MEAN CORPUSCULAR VOLUME 80.9 FL (78-98); MEAN PLATELET VOLUME 8.2 FL (7.4-10.4); MONOCYTES # (AUTO) 0.7 X10'3 (0-0.9); MONOCYTES % (AUTO) 7.7 % (2-12); NEUTROPHILS # (AUTO) 8.2 X10'3 (1.8-7.7); NEUTROPHILS % (AUTO) 86.5 % (42-75); PLATELET COUNT 147 X10'3 (140-440); RED BLOOD COUNT 3.31 X10'6 (4.20-5.60); RED CELL DISTRIBUTION WIDTH 20.3 % (11.5-14.5); WHITE BLOOD COUNT 9.4 X10'3 (4.5-11.0)
[2023-12-12] MEDS: normal saline 1000ml 1,000 ML IV SCH (11:19)
[2023-12-12 14:19] LABS: URINE HCG NEGATIVE (NEG)
[2023-12-12 14:24] LABS: BILIRUBIN,URINE NEGATIVE (Neg); CLARITY,URINE CLOUDY (Clear); COLOR,URINE YELLOW (Yellow); GLUCOSE, URINE NEGATIVE (Neg); KETONES,URINE NEGATIVE (Neg); LEUKOCYTE ESTERASE ,URINE MODERATE (Neg); NITRITES, URINE POSITIVE (Neg); OCCULT BLOOD,URINE SMALL (Neg); PH,URINE 5.5 (4.8-8.0); PROTEIN,URINE 30 mg/dl (Neg); UROBILINOGEN,URINE 0.2 E.U/dL (0.2-1.0)
[2023-12-12 14:27] LABS: UA COLLECTION TYPE STRAIGHT CATH
[2023-12-12 14:29] LABS: BACTERIA,URINE 4+ /HPF (Neg); COARSE GRANULAR CAST 0-3 /LPF (NEGATIVE); MUCUS STRANDS NONE SEEN /LPF (Neg); RBC,URINE 0-2 /HPF (0-2); SQUAMOUS EPITHELIAL CELL,UR NONE SEEN /LPF (FEW); WBC,URINE 50-100 /HPF (0-4)
[2023-12-12] MEDS: morphine 2 MG/ML inj. syringe IV PRN (14:40)
[2023-12-12] MEDS ORDERED: zolpidem 5mg tablet PO PRN (16:25)
[2023-12-12] MEDS: piperacillin/tazo 3.375gm/50ml 50 ML IV SCH (16:39)
[2023-12-12] MEDS: heparin 10,000 units/1 ML INJ IV PRN (18:41)
[2023-12-12] MEDS: docusate sod 100mg capsule PO SCH (20:00)
[2023-12-12] MEDS: K and/or MAG REPLACEMENT MC SCH (20:00)
[2023-12-12] MEDS: amLODIPine 5mg tablet PO SCH (20:10)
[2023-12-13] VITALS (23 sets, daily range): BP systolic 105–167; BP diastolic 38–88; PULSE 61–70; RESP 12–20; TEMP 97.1–98.1; O2SAT 90–97
[2023-12-13] MEDS: lisinopril 20mg tablet PO SCH (01:19)
[2023-12-13] MEDS: sertraline 50mg tablet PO SCH (01:38)
[2023-12-13] MEDS: HYDROcodone/acetaminophen 10/325mg tab PO PRN ×2 (01:39→19:16)
[2023-12-13] MEDS: hydrALAZINE 25 MG tablet PO SCH (01:40)
[2023-12-13 08:51] LABS: BASOPHILS # (AUTO) 0.1 X10'3 (0-0.2); BASOPHILS % (AUTO) 0.9 % (0-1); EOSINOPHILS # (AUTO) 0.2 X10'3 (0-0.9); EOSINOPHILS % (AUTO) 2.1 % (0-6); HEMATOCRIT 30.5 % (35.0-45.0); HEMOGLOBIN 9.8 g/dl (12.0-16.0); LYMPHOCYTES # (AUTO) 1.1 X10'3 (1.1-4.8); MEAN CORPUSCULAR HEMOGLOBIN 26.2 PG (27.0-31.0); MEAN CORPUSCULAR HGB CONC 32.1 g/dL (33.0-36.5); MEAN CORPUSCULAR VOLUME 81.4 FL (78-98); MEAN PLATELET VOLUME 8.9 FL (7.4-10.4); MONOCYTES # (AUTO) 0.8 X10'3 (0-0.9); NEUTROPHILS # (AUTO) 5.4 X10'3 (1.8-7.7); PLATELET COUNT 147 X10'3 (140-440); RED BLOOD COUNT 3.75 X10'6 (4.20-5.60); RED CELL DISTRIBUTION WIDTH 20.4 % (11.5-14.5); WHITE BLOOD COUNT 7.6 X10'3 (4.5-11.0)
[2023-12-13] MEDS: aspirin 81mg tab.chew PO SCH (09:13)
[2023-12-13] MEDS: pantoprazole 40mg Tablet.DR PO SCH (09:14)
[2023-12-13] MEDS: pravastatin 40mg tablet PO SCH (09:14)
[2023-12-13] MEDS: clopidogrel 75mg tablet PO SCH (09:15)
[2023-12-13] MEDS ORDERED: FLU VACC QS2023-24(6MOS UP)/PF 60 MCG/0.5 ML SYRINGE IM ONE (10:00)
[2023-12-13 10:05] LABS: ALANINE AMINOTRANSFERASE 15 U/L (12-78); ALBUMIN 2.5 G/DL (3.4-5.0); ALBUMIN/GLOBULIN RATIO 0.8 (1.1-1.5); ALKALINE PHOSPHATASE 42 IU/L (46-116); ANION GAP 13 (8-16); ASPARTATE AMINO TRANSFERASE 27 U/L (10-37); BILIRUBIN,TOTAL 0.3 MG/DL (0.1-1.0); BLOOD UREA NITROGEN 19 MG/DL (7-18); BUN/CREATININE RATIO 12.9 (10.0-20.0); CALCIUM 8.3 MG/DL (8.5-10.1); CHLORIDE 111 MMOL/L (99-107); CREATININE 1.47 MG/DL (0.40-0.90); GLUCOSE 85 MG/DL (70-104); MAGNESIUM 1.8 MG/DL (1.5-2.4); PHOSPHORUS 2.8 MG/DL (2.3-4.5); POTASSIUM 3.8 MMOL/L (3.5-5.1); SODIUM 145 MMOL/L (135-145); TOTAL CARBON DIOXIDE 21.5 MMOL/L (24-32); TOTAL PROTEIN 5.6 G/DL (6.4-8.2); eCRCL 28 ML/MIN; eGFR 34 ML/MIN
[2023-12-13] MEDS ORDERED: verapamil 2.5 mg/ml inj IV ONE (10:41)
[2023-12-13] MEDS ORDERED: iohexol 350 MG/ML 50ML vial IV ONE (10:42)
[2023-12-13] MEDS ORDERED: LIDOcaine 1% 30ml preserv. free vial ONE ×2 (10:42→11:44)
[2023-12-13] MEDS ORDERED: midazolam 1 mg/ML 2ml injection ONE (10:42)
[2023-12-13] MEDS ORDERED: iohexol 350MG/ML 100ml bottle IV ONE ×2 (10:42→12:05)
[2023-12-13] MEDS ORDERED: fentaNYL/PF 50MCG/1 ML 2ML syringe ONE (10:42)
[2023-12-13] MEDS ORDERED: nitroGLYCERIN 500mcg/5mL D5W 5 ML IV ONE (10:42)
[2023-12-13] MEDS ORDERED: heparin 1,000unit/ml 10ml vial 10 ML ONE (10:42)
[2023-12-13] MEDS ORDERED: clopidogrel 300mg tablet ONE (12:37)
[2023-12-13] MEDS ORDERED: aspirin 81mg tab.chew ONE (13:01)
[2023-12-13 13:19] LABS: ISTAT HGB ART 9.9 g/dl (12.0-16.0); ISTAT Hct ART 29 %PCV (35-45); ISTAT O2 SATURATION ARTERIAL 86 % (95-98); ISTAT SOURCE ART
[2023-12-13] MEDS ORDERED: HYDROcodone/acetaminophen 5mg/325mg tablet PO PRN (14:45)
[2023-12-13] MEDS: aspirin 81mg, enteric-coated 1 TAB TABLET.DR PO ONE (14:52)
[2023-12-13] MEDS: clopidogrel 75mg tablet PO ONE (14:57)
[2023-12-13] MEDS: FERROUS SULFATE 142 MG TABLET.ER (45mg elemental) PO SCH (19:43)
[2023-12-14] VITALS (9 sets, daily range): BP systolic 132–177; BP diastolic 47–73; PULSE 60–70; RESP 14–19; TEMP 97.4–99; O2SAT 91–99
[2023-12-14 06:29] LABS: BASOPHILS % (AUTO) 0.7 % (0-1); EOSINOPHILS % (AUTO) 0.6 % (0-6); HEMATOCRIT 28.2 % (35.0-45.0); HEMOGLOBIN 9.3 g/dl (12.0-16.0); LYMPHOCYTES # (AUTO) 0.5 X10'3 (1.1-4.8); LYMPHOCYTES % (AUTO) 8.8 % (21-51); MEAN CORPUSCULAR HEMOGLOBIN 26.2 PG (27.0-31.0); MEAN CORPUSCULAR HGB CONC 32.9 g/dL (33.0-36.5); MEAN CORPUSCULAR VOLUME 79.7 FL (78-98); MEAN PLATELET VOLUME 8.5 FL (7.4-10.4); MONOCYTES # (AUTO) 0.6 X10'3 (0-0.9); MONOCYTES % (AUTO) 10.2 % (2-12); NEUTROPHILS # (AUTO) 4.7 X10'3 (1.8-7.7); NEUTROPHILS % (AUTO) 79.7 % (42-75); PLATELET COUNT 157 X10'3 (140-440); RED BLOOD COUNT 3.54 X10'6 (4.20-5.60); RED CELL DISTRIBUTION WIDTH 19.8 % (11.5-14.5); WHITE BLOOD COUNT 5.9 X10'3 (4.5-11.0)
[2023-12-14 06:43] LABS: ISTAT HGB MIX 9.9 g/dl (12.0-16.0); ISTAT Hct MIX 29 %PCV (35-45); ISTAT O2 SATURATION MIX VENOUS 50 % (60-80); ISTAT SOURCE VEN
[2023-12-14 06:48] LABS: ALANINE AMINOTRANSFERASE 6 U/L (12-78); ALBUMIN 2.4 G/DL (3.4-5.0); ALBUMIN/GLOBULIN RATIO 0.8 (1.1-1.5); ALKALINE PHOSPHATASE 41 IU/L (46-116); ANION GAP 12 (8-16); ASPARTATE AMINO TRANSFERASE 22 U/L (10-37); BILIRUBIN,TOTAL 0.4 MG/DL (0.1-1.0); BLOOD UREA NITROGEN 17 MG/DL (7-18); BUN/CREATININE RATIO 13.1 (10.0-20.0); CALCIUM 8.3 MG/DL (8.5-10.1); CHLORIDE 111 MMOL/L (99-107); GLUCOSE 95 MG/DL (70-104); MAGNESIUM 1.9 MG/DL (1.5-2.4); PHOSPHORUS 2.6 MG/DL (2.3-4.5); POTASSIUM 3.7 MMOL/L (3.5-5.1); SODIUM 144 MMOL/L (135-145); TOTAL CARBON DIOXIDE 20.9 MMOL/L (24-32); TOTAL PROTEIN 5.4 G/DL (6.4-8.2); eCRCL 31 ML/MIN; eGFR 39 ML/MIN
[2023-12-14] MEDS ORDERED: morphine 2 MG/ML inj. syringe IV PRN ×2 (11:20)
[2023-12-14] MEDS ORDERED: HYDROcodone/acetaminophen 5mg/325mg tablet PO PRN (18:05)
[2023-12-14] MEDS: heparin, porcine 5000 units/ml vial SQ SCH (19:34)
[2023-12-14] MEDS: HYDROcodone/acetaminophen 10/325mg tab PO PRN (20:04)
[2023-12-15 02:00] VITALS: BP 171/71; PULSE 68; RESP 10; TEMP 97.5; O2SAT 93
[2023-12-15] MEDS: metoprolol tartrate 50mg tablet PO ONE (03:20)
[2023-12-15 03:53] VITALS: BP 152/66; PULSE 62
[2023-12-15 06:00] VITALS: BP 134/58; PULSE 62; RESP 12; TEMP 97.6; O2SAT 93
[2023-12-15 06:11] LABS: BASOPHILS % (AUTO) 0.6 % (0-1); EOSINOPHILS # (AUTO) 0.1 X10'3 (0-0.9); EOSINOPHILS % (AUTO) 0.9 % (0-6); HEMATOCRIT 29.3 % (35.0-45.0); HEMOGLOBIN 9.5 g/dl (12.0-16.0); LYMPHOCYTES # (AUTO) 0.5 X10'3 (1.1-4.8); LYMPHOCYTES % (AUTO) 7.5 % (21-51); MEAN CORPUSCULAR HEMOGLOBIN 26.1 PG (27.0-31.0); MEAN CORPUSCULAR HGB CONC 32.5 g/dL (33.0-36.5); MEAN CORPUSCULAR VOLUME 80.2 FL (78-98); MEAN PLATELET VOLUME 8.5 FL (7.4-10.4); MONOCYTES # (AUTO) 0.5 X10'3 (0-0.9); MONOCYTES % (AUTO) 8.1 % (2-12); NEUTROPHILS # (AUTO) 5.6 X10'3 (1.8-7.7); NEUTROPHILS % (AUTO) 82.9 % (42-75); PLATELET COUNT 167 X10'3 (140-440); RED BLOOD COUNT 3.66 X10'6 (4.20-5.60); RED CELL DISTRIBUTION WIDTH 20.4 % (11.5-14.5); WHITE BLOOD COUNT 6.8 X10'3 (4.5-11.0)
[2023-12-15 06:26] LABS: ALANINE AMINOTRANSFERASE 17 U/L (12-78); ALBUMIN 2.5 G/DL (3.4-5.0); ALBUMIN/GLOBULIN RATIO 0.6 (1.1-1.5); ALKALINE PHOSPHATASE 46 IU/L (46-116); ANION GAP 10 (8-16); ASPARTATE AMINO TRANSFERASE 20 U/L (10-37); BILIRUBIN,TOTAL 0.3 MG/DL (0.1-1.0); BLOOD UREA NITROGEN 15 MG/DL (7-18); BUN/CREATININE RATIO 13.9 (10.0-20.0); CALCIUM 8.4 MG/DL (8.5-10.1); CHLORIDE 111 MMOL/L (99-107); CREATININE 1.08 MG/DL (0.40-0.90); GLUCOSE 95 MG/DL (70-104); MAGNESIUM 1.9 MG/DL (1.5-2.4); PHOSPHORUS 1.8 MG/DL (2.3-4.5); POTASSIUM 3.6 MMOL/L (3.5-5.1); SODIUM 142 MMOL/L (135-145); TOTAL CARBON DIOXIDE 20.7 MMOL/L (24-32); TOTAL PROTEIN 6.5 G/DL (6.4-8.2); eCRCL 38 ML/MIN; eGFR 48 ML/MIN
[2023-12-15 07:36] LABS: HBSAG SCREEN Negative (Negative); HEP B CORE AB, IGM Negative (Negative); HEP B CORE AB, TOT Negative (Negative); HEPATITIS C VIRUS ANTIBODY Non Reactive (Non Reactive)
[2023-12-15] MEDS: CefTRIAXone 2gm/D5W 50ml BAG 50 ML IV SCH (07:50)
[2023-12-15 08:00] VITALS: RESP 18; O2SAT 95
[2023-12-15 11:00] VITALS: BP 144/71; PULSE 68; RESP 12; TEMP 97.3; O2SAT 94
[2023-12-15] MEDS ORDERED: FERR142T13 PO (11:14)
[2023-12-15] MEDS ORDERED: LISI20TA28 PO (11:14)
[2023-12-15] MEDS ORDERED: ASPI81TA53 PO (11:14)
[2023-12-15] MEDS ORDERED: SENN1TAB82 PO (11:14)
[2023-12-15] MEDS ORDERED: CIPR-259 PO (11:16)
== END 2023-12-15 13:05 | disposition home health service (06) | DRG 853 ==
LOC: ER 05:04 → ED HOLD 10:10 → EDBEDREQ 22:42 → PCU 3S 23:11
PROVIDERS: ADMIT Family Medicine; ATTEND Family Medicine
PROC: 027034Z Dilation of Coronary Artery, One Artery with Drug-eluting Intraluminal Device, Percutaneous Approach (ICD-10-PCS; principal; 2023-12-13)
PROC: 4A023N8 Measurement of Cardiac Sampling and Pressure, Bilateral, Percutaneous Approach (ICD-10-PCS; 2023-12-13)
PROC: B2131ZZ Fluoroscopy of Multiple Coronary Artery Bypass Grafts using Low Osmolar Contrast (ICD-10-PCS; 2023-12-13)
PROC: B2181ZZ Fluoroscopy of Left Internal Mammary Bypass Graft using Low Osmolar Contrast (ICD-10-PCS; 2023-12-13)
PROC: B2151ZZ Fluoroscopy of Left Heart using Low Osmolar Contrast (ICD-10-PCS; 2023-12-13)
PROC: B2111ZZ Fluoroscopy of Multiple Coronary Arteries using Low Osmolar Contrast (ICD-10-PCS; 2023-12-13)
PROC: B41F1ZZ Fluoroscopy of Right Lower Extremity Arteries using Low Osmolar Contrast (ICD-10-PCS; 2023-12-13)
DX: A41.51 Sepsis due to Escherichia coli [E. coli] (principal); I21.A1 Myocardial infarction type 2; I13.0 Hypertensive heart and chronic kidney disease with heart failure and stage 1 through stage 4 chronic kidney disease, or unspecified chronic kidney disease; I50.32 Chronic diastolic (congestive) heart failure; T82.855A Stenosis of coronary artery stent, initial encounter; T82.857A Stenosis of other cardiac prosthetic devices, implants and grafts, initial encounter; N39.0 Urinary tract infection, site not specified; F32.A Depression, unspecified; G47.00 Insomnia, unspecified; N18.9 Chronic kidney disease, unspecified; Z96.642 Presence of left artificial hip joint; K59.09 Other constipation; F41.9 Anxiety disorder, unspecified; I77.1 Stricture of artery; I49.5 Sick sinus syndrome; I25.10 Atherosclerotic heart disease of native coronary artery without angina pectoris; D50.9 Iron deficiency anemia, unspecified; E03.9 Hypothyroidism, unspecified; G47.30 Sleep apnea, unspecified; E78.5 Hyperlipidemia, unspecified; Z20.822 Contact with and (suspected) exposure to COVID-19; Y83.1 Surgical operation with implant of artificial internal device as the cause of abnormal reaction of the patient, or of later complication, without mention of misadventure at the time of the procedure; Y83.2 Surgical operation with anastomosis, bypass or graft as the cause of abnormal reaction of the patient, or of later complication, without mention of misadventure at the time of the procedure; Z95.0 Presence of cardiac pacemaker; Z95.1 Presence of aortocoronary bypass graft; Z86.718 Personal history of other venous thrombosis and embolism; Z85.3 Personal history of malignant neoplasm of breast; Z79.899 Other long term (current) drug therapy; Z98.84 Bariatric surgery status; Z86.711 Personal history of pulmonary embolism; Z90.710 Acquired absence of both cervix and uterus; Z95.5 Presence of coronary angioplasty implant and graft; Z92.21 Personal history of antineoplastic chemotherapy; Z79.02 Long term (current) use of antithrombotics/antiplatelets; Y92.89 Other specified places as the place of occurrence of the external cause
CPT/HCPCS: 93306; 93461; 99285; C9604; 36415; 71045; 74176; 76937; 80053; 80061; 81001; 81025; 82803; 83605; 83735; 83880; 84100; 84145; 84484; 85014; 85025; 85347; 85610; 85730; 86704; 86705; 86803; 87040; 87077; 87081; 87088; 87186; 87340; 87502; 87503; 87522; 87811; 90686; 93005; 97116; 97161; 97530; 99152; 99153; A4314; A4615; A6258; A6449; C1725; C1751; C1769; C1874; C1894; G0378; J0696; J1644; J2250; J2270; J2405; J2543; J3010; J3490; J7030; J7040; Q9967